=== PATIENT | female | born 1995 | race Caucasian/White ===

== ENCOUNTER 2020-06-28 00:19 | Emergency (ER) | payer BC, SELFPAY ==
[2020-06-28] MEDS ORDERED: Cephalexin 250 MG CAP ONE (00:31)
[2020-06-28] MEDS ORDERED: Acetaminophen 500 MG TAB ONE (00:31)
== END 2020-06-28 00:40 | disposition home or self-care (01) ==
LOC: NAV ERS 00:19
DX: S10.96XA Insect bite of unspecified part of neck, initial encounter (principal); L08.9 Local infection of the skin and subcutaneous tissue, unspecified; J45.909 Unspecified asthma, uncomplicated; W57.XXXA Bitten or stung by nonvenomous insect and other nonvenomous arthropods, initial encounter
CPT/HCPCS: 99282